=== PATIENT | female | born 1940 | race Caucasian/White ===

== ENCOUNTER → 2020-04-15 15:43 | Outpatient (BNVA) | payer MEDICARE, SELFPAY | PROVIDERS: Family Provider Family Medicine; PCP Family Medicine; Visit Provider Family Medicine | DX: I10 Essential (primary) hypertension (principal); Z78.9 Other specified health status | CPT/HCPCS: 80053; 85025 ==

== ENCOUNTER → 2021-05-04 11:25 | Outpatient (BNVA) | payer MEDICARE, SELFPAY | PROVIDERS: Family Provider Family Medicine; PCP Family Medicine; Visit Provider Family Medicine | DX: Z00.00 Encounter for general adult medical examination without abnormal findings (principal); I10 Essential (primary) hypertension | CPT/HCPCS: 80053; 82607; 84443; 85025 ==

== ENCOUNTER → 2022-11-08 10:16 | Outpatient (BNVA) | payer MEDICARE, SELFPAY | PROVIDERS: Family Provider Family Medicine; PCP Family Medicine; Visit Provider Family Medicine | DX: I10 Essential (primary) hypertension (principal); N39.3 Stress incontinence (female) (male) | CPT/HCPCS: 80053; 84443; 85025 ==

== ENCOUNTER 2022-11-24 13:16 | Outpatient (CLI) | payer MEDICARE, SELFPAY ==
--- NOTE | 2022-11-24 13:30 | USCV_ITS ---
Lorraine Love Age: 82 Gender: F : 1940 Exam Date: 11/24/2022 14:15 Ordering Phys: Nish Meehan MD Technologist: CT Exam Location: [facility] Indication: tia Risk Factors: Previous Vascular Surgery: Right Brachial BP: / Left Brachial BP: / Right Left Velocity (cm/s) Spectral Plaque Velocity (cm/s) Spectral Plaque Syst/Diast Broadening Syst/Diast Broadening 58.50/ 11.10 Prox CCA 67.70 / 14.50 55.10/ 10.90 Mid CCA 62.90 / 15.30 60.70/ 14.50 Distal CCA 61.60 / 14.60 57.30/ 15.40 Prox ICA 52.20 / 12.00 47.30/ 17.10 Mid ICA 34.60 / 10.90 59.80/ 17.10 Distal ICA 61.10 / 17.80 76.90 ECA 55.90 0.99 ICA/CCA 0.90 Antegrade Vertebral Antegrade 51.90/ 16.40 cm/s 32.80/ 10.30 cm/s Bi Subclavian Bi 65.10 65.00 CONCLUSIONS Right ICA stenosis <50%. Left ICA stenosis <50%. Normal antegrade Doppler flow noted in the right vertebral artery. Normal antegrade Doppler flow noted in the left vertebral artery. Enrique Dykes MD (Electronically Signed) Final Date: 24 November 2022 15:46 S
== END 2022-11-24 13:17 | disposition home or self-care (01) ==
PROVIDERS: PCP Family Medicine; Visit Provider Family Medicine
DX: G45.1 Carotid artery syndrome (hemispheric) (principal)
CPT/HCPCS: 93880

== ENCOUNTER → 2023-12-19 16:14 | Outpatient (BNVA) | payer MEDICARE, SELFPAY | PROVIDERS: PCP Family Medicine; Visit Provider Family Medicine | DX: I10 Essential (primary) hypertension (principal) | CPT/HCPCS: 80053; 85025 ==

== ENCOUNTER → 2025-03-19 10:55 | Outpatient (BNVA) | payer MEDICARE, SELFPAY | PROVIDERS: PCP Family Medicine; Visit Provider Podiatrist Foot & Ankle Surgery | DX: Q82.8 Other specified congenital malformations of skin (principal); L84 Corns and callosities | CPT/HCPCS: 17110; 99203 ==

== ENCOUNTER → 2025-04-08 09:42 | Outpatient (BNVA) | payer MEDICARE, SELFPAY | PROVIDERS: PCP Family Medicine; Visit Provider Family Medicine | DX: I10 Essential (primary) hypertension (principal); N39.3 Stress incontinence (female) (male) | CPT/HCPCS: 80053; 81000; 85025 ==

== ENCOUNTER → 2025-04-17 10:24 | Outpatient (BNVA) | payer MEDICARE, SELFPAY | PROVIDERS: PCP Family Medicine; Visit Provider Podiatrist Foot & Ankle Surgery | DX: L84 Corns and callosities (principal); Q82.8 Other specified congenital malformations of skin | CPT/HCPCS: 99213 ==